=== PATIENT | male | born 1995 ===

== ENCOUNTER → 2017-01-15 | Outpatient (CLI) | payer BC ==
--- NOTE | 2017-01-15 11:46 | DIAGNOSTIC IMAGING REPORT ---
AP STANDING VIEW OF BOTH KNEES; 3 VIEWS RIGHT KNEE CLINICAL HISTORY: Right knee pain. FINDINGS: An AP standing view of both knees with lateral, tunnel, and sunrise views of the right knee are obtained. No prior studies are available for comparison at the time of dictation. The skeletal structures are well mineralized. No fracture is seen. The joint spaces of the knee are preserved. A tiny superior patellar enthesophyte is noted. No osteochondral defect is seen on the tunnel image. A small joint effusion is suspected. The overlying soft tissues are within normal limits. Survey images of the left knee on the frontal view show evidence of previous ACL repair. IMPRESSION: 1. Suspect a tiny joint effusion. No acute bony abnormality is seen in the right knee. 2. Postoperative change from previous ACL repair is noted on survey imaging of the left knee. Electronically signed by: Saqib Lynn M.D. 01/15/2017 11:45 AM Dictated Date/Time: 01/15/2017 11:44 AM
== END | disposition home or self-care (01) ==
LOC: C.RDSM 14:31
PROVIDERS: ATTEND Physician Assistant
DX: M25.561 Pain in right knee (principal)

== ENCOUNTER → 2017-01-30 | Day surgery (SDC) | payer BC ==
[2017-01-18 14:56] VITALS: Ht 175.3 cm; Wt 79.5 kg
[~2017-01-30] VITALS: Ht 175.3 cm; Wt 79.5 kg
[~2017-01-30] MED LIST: ASPI325T39 PO; ATROPINE SULFATE 0.1 MG/ML 5ML SYR IV PRN; BUPIVACAINE/EPINEPHRINE 0.25% 1:200,000 30 ML VIAL ONE; CEFAZOLIN 2000MG IV PUSH 10 ML IV SCH; CEFTRIAXONE SOD 1 GM VIAL IV ONE; CEPH500C2 PO; DEXAMETHASONE SOD INJ 4 MG/ML VIAL ONE; EpHEDrine SULFATE INJ 50 MG/ML AMP IV PRN; EpINEphrine HCL INJ 1 MG/ML 5ML SYRINGE ONE; FENTANYL CITRATE INJ 50 MCG/1 ML 2 ML VIAL IV PRN; FENTANYL CITRATE INJ 50 MCG/1 ML 2 ML VIAL ONE; FLUMAZENIL 0.1 MG/1 ML 10 ML VIAL IV PRN; HYDROmorphone INJ 0.5 MG/0.5 ML SYR ONE; HYDROmorphone INJ 2 MG/ML SYR/VIAL IV PRN; KETAMINE HCL INJ 50 MG/ML 10 ML VIAL ONE; LABETALOL HCL IV 5 MG/ML 20ML IV PRN; LACTATED RINGER'S 1000ML 1,000 ML IV SCH; LIDOCAINE HCL 2% 2 ML VIAL (20MG/ML) ONE; MEPERIDINE HCL 25 MG/ML CARP IV PRN; MIDAZOLAM HCL 1 MG/ML 2ML VIAL ONE; NALOXONE HCL 0.4 MG/1 ML VIAL/CARP IV PRN; NURSING VERBAL MED ORDER ONE; ONDANSETRON INJ 2 MG/ML 2 ML VIAL IV PRN; ONDANSETRON INJ 2 MG/ML 2 ML VIAL ONE; OXYC-57 PO; OXYCODONE/ACETAMINOPHEN 5-325 TAB ONE; OXYCODONE/ACETAMINOPHEN 5-325 TAB PO PRN; PHENYLEPHRINE 100MCG/ML 5ML SYR IV PRN; PROPOFOL IV EMULSION 10 MG/ML 20 ML VIAL IV ONE; SODIUM CHLORIDE 0.9% 1000ML 1,000 ML IV SCH
--- NOTE | 2017-01-30 09:06 | History & Physical Bridge Note ---
H&P Re-Evaluation Bridge Note: I have examined the patient, reviewed the History & Physical and in the interval since the performance of the History & Physical I have noted the following changes of clinical significance:consent reviewed. No changes noted
--- NOTE | 2017-01-30 09:07 | Discharge Instructions ---
Discharge Instructions Date of Service Jan 30, 2017. Visit Reason for Visit: Right Knee Acl Tear Discharge Discharge Diagnosis / Problem: same Discharge Goals Goal(s): Decrease discomfort, Improve function Medications Stopped Medications Name(s): na Restart Stopped Medication(s): use scripts as directed Activity Recommendations Activity Limitations: as noted below Lifting Limitations: until after follow-up appointment Exercise/Sports Limitations: until after follow-up appointment May Resume Sexual Activity: when tolerated Shower/Bathe: keep incision dry Driving or Machine Use: Weightbearing Status: Right weightbearing (as tolerated) Anesthesia . Post Anesthesia Instructions: If you have had General Anesthesia or IV Sedation: * Do not drive today. * Resume driving when surgeon permits. * Do not make important decisions or sign legal documents today. * Call surgeon for: 1. Temperature elevations greater than 101 degrees F. 2. Uncontrollable pain. 3. Excessive bleeding. 4. Persistent nausea and vomiting. 5. Medication intolerance (nausea, vomiting or rash). * For nausea and vomiting use only clear liquids such as: tea, soda, bouillon until nausea subsides, then gradually increase diet as tolerated. * If you have any concerns or questions, call your surgeon's office. If physician is unavailable and it is an emergency, call 911 or go to the nearest emergency room. . Instructions / Follow-Up Instructions / Follow-Up The following instructions are a useful guide to questions you may have after your Anterior Cruciate Ligament Reconstruction surgery. If you have any questions contact the office at . ACTIVITY RECOMMENDATIONS: * Heavy manual labor is not permitted until 4-6 months after surgery. * Sports are not permitted until 6-9 months after surgery. * Return to activity is individualized. * DRIVING: Driving is not permitted until 3-4 weeks after surgery at a minimum. Please ask your doctor when it is safe to resume driving. If you have an automatic vehicle and your left leg has been operated on, then you may begin driving as soon as you are comfortable and can drive safely. * BATHING: You may shower or sponge-bathe immediately after surgery. The dressing will need to be covered with a plastic bag or plastic wrap until the dressing is changed on the fourth or fifth day after surgery. Once the dressing has been changed on the fourth or fifth day after surgery, you may shower and get the incision wet. * Wash with regular soap and water. * Do not bathe (submerge the incision), soak, swim or use a hot tub until the incision is completely healed over with normal skin and the doctor has given the OK to proceed. * There is no need to apply any ointments, powders or salves to your incision. * Do not apply alcohol or hydrogen peroxide directly to the incision. Diluted peroxide (50:50 mixture with sterile saline) may be used to clean dried blood from around the incision area. WORK/SCHOOL: * You may return to sedentary work or school when you are feeling comfortable. This is usually 3-7 days after surgery. * Expect increased discomfort with increased activity. Continue to elevate and ice the leg as much as possible. DIET: * Resume previous diet. MEDICATIONS: * You will have a prescription for pain medication and an anti-inflammatory medication after surgery. Use the pain pills for severe pain and the anti-inflammatory for less severe pain. * Once the pain pills have run out, try to use the anti-inflammatory. If this is not effective then contact the office for assistance. * The pain medication may cause nausea, constipation and sleepiness. You should see how they affect you before driving or similar activity. * The anti-inflammatory may cause stomach upset and bleeding. If this occurs, let your doctor know immediately . * Some patients may need blood clot prevention. This can be done with either a pill or a simple shot. Your doctor will advise you on when to begin these medications and how to take them. * Do not take aspirin or other anti-inflammatory products (i.e. Advil or Aleve ) if taking blood thinner medication. * Take a stool softener like Colace or a stimulant like Senokot to prevent constipation. SPECIAL CARE INSTRUCTIONS: The following instructions are a useful guide to questions you may have after your surgery. If you have any questions contact the office at . ICE: * You have the option of an ice cooler, gel packs or ice bags. * If you have an ice cooler, refer to the instructions for that device. * If you do not have an ice cooler, then you will need to use ice bags or gel packs. * Do not apply ice directly to the skin. * Use a thin dressing or stockinet between the skin and ice bag. * Apply ice for 20-30 minutes and repeat every 2-4 hours. This is especially important for the first 7-10 days after surgery. * Once the pain improves, use ice as needed. * The ice cooler can be used continuously. ELEVATION: * Keep your leg elevated at or above the level of your heart as much as possible. * Expect some increased discomfort and swelling if you are standing for any length of time. * When lying down, avoid placing anything under your knee. Rather, prop your leg up by placing several pillows under your heel or calf. DRESSING: * Your dressing will be changed at your first therapy appointment approximately 4-5 days after surgery. * Band-Aids, tape strips or gauze may be applied. You may then change your dressing daily. * Always wash your hands prior to touching the incision area. * Reapply dressing followed by the Lan wrap or Tubi-log hooker stockinet, ice cooling pad and then the brace. * Once the stitches are removed, you may leave the wound open to air or cover with an Lan Bandage or Tubi-log hooker stockinet. * If you have been given a white elastic stocking (SAMANTHA hose), wear as much as possible for the first 1-3 weeks depending on swelling. * Expect some bloody drainage for the first few days after surgery. * Leave the tape strips in place for 5-7 days. * Band-Aids and gauze may be changed daily. CRUTCHES: * You will need to use crutches after surgery. * Until your first doctor's appointment, you must use your crutches at all times when walking and should put no more than 50% of your normal weight on the surgical leg. * After your first doctor's appointment, you may gradually progress to full weight bearing and discontinue crutches as tolerated under the guidance of your therapist. * If you have had a microfracture procedure done, you may be advised to be non- weight bearing for up to 6 weeks. BRACE: * After surgery, you will be placed into a range of motion brace locked with your leg straight. This brace is to be worn at all times when walking (even with the crutches) and sleeping until your first doctors appointment. * The brace may be removed for therapy. * After your first therapy appointment, your therapist will open the brace to allow bending of the knee once your muscles are working better. * Until your first doctor's appointment, you should sleep with your brace locked with your knee fully straight. * If you have chosen to use a functional ACL brace then this brace will be supplied about 2-3 months after your surgery. During that time, you will attend therapy 2- 3 times per week. You will also need to do daily exercises for range of motion and strength as instructed. PROBLEMS/QUESTIONS: * If you have any problems such as severe pain, numbness, tingling or high fevers or if you have any questions, please contact the office at [phone]. * It is not uncommon to have some numbness and tingling after the surgery especially if you have had a nerve block done. This should gradually improve over the first 1- 2 days. If this persists longer or worsens then contact the office. FOLLOW UP VISIT: * If not already scheduled, please call the office at to schedule follow-up appointments for approximately 10 days and one month after surgery followed by monthly appointments thereafter. Diet Recommendations Recommended Home Diet: resume previous diet Procedures Procedures Performed: see op note Pending Studies Studies pending at discharge: no Medical Emergencies . Who to Call and When: Medical Emergencies: If at any time you feel your situation is an emergency, please call 911 immediately. . Non-Emergent Contact Non-Emergency issues call your: Specialist Call Non-Emergent contact if: wound has increased drainage, wound has increased redness, wound has increased pain . . "Provider Documentation" section prepared by Ld Rankin. .
--- NOTE | 2017-01-30 09:17 | History & Physical Bridge Note ---
H&P Re-Evaluation Bridge Note: I have examined the patient, reviewed the History & Physical and in the interval since the performance of the History & Physical I have noted the following changes of clinical significance: ACL reconstruction r knee with patellar tendon autograft.consent reviewed.No changes noted
--- NOTE | 2017-01-30 11:15 | [facility] Post Operative Brief Note ---
Immediate Operative Summary Operative Date Jan 30, 2017. Pre-Operative Diagnosis Right Knee ACL Tear/meniscus tears Post-Operative Diagnosis Right Knee ACL Tear, Medial and Lateral Meniscus Tears Procedure(s) Performed Right Knee Arthroscopic Anterior Cruciate Ligament Reconstruction Using Patellar Tendon Autograft, Medial and Lateral Meniscus Repair, Exam Under Anesthesia Surgeon Dr. Rankin Transmitter Engineer Surgeon(s) Connie Claire PA-C Estimated Blood Loss 50 mL Findings see op note Fluids (cc crystalloids) 1400cc Specimens None Drains none Anesthesia LMA/block Complication(s) None Disposition Recovery Room / PACU
--- NOTE | 2017-01-30 11:19 | [facility] Operative Report ---
Operative Report Operative Date Jan 30, 2017. Pre-Operative Diagnosis Right Knee ACL Tear/meniscus tears Post-Operative Diagnosis Right Knee ACL Tear, Medial and Lateral Meniscus Tears Procedure(s) Performed Right Knee Arthroscopic Anterior Cruciate Ligament Reconstruction Using Patellar Tendon Autograft, Medial and Lateral Meniscus Repair, Exam Under Anesthesia Surgeon Dr. Rankin Offender Employment Specialist Surgeon(s) Connie Claire PA-C Estimated Blood Loss 50 mL Findings na Fluids (cc crystalloids) 1400cc Specimens None Complication(s) None Disposition Recovery Room / PACU I attest to the content of the Intraoperative Record and any orders documented therein. Any exceptions are noted below.
--- NOTE | 2017-01-30 11:54 | OPERATIVE REPORT ---
DATE OF OPERATION: 01/30/2017 SURGEON: Ld Rankin MD. INSURANCE UNDERWRITER: [place]. No resident or fellow available. PREOPERATIVE DIAGNOSIS: Anterior cruciate ligament tear, chronic right knee with possible meniscus tears. POSTOPERATIVE DIAGNOSES: 1. Anterior cruciate ligament tear. 2. Medial repairable meniscus tear. 3. Collateral repairable meniscus tear. 4. Complete anterior cruciate ligament tear. PERIOPERATIVE SITUATION: Medically cleared male with intractable instability to his knee, has giving way, has pain. Physical exam was consistent with ACL tear. He had medial and lateral joint line tenderness. He had an x-ray which revealed no fracture. It was elected not to get an MRI scan. DESCRIPTION OF PROCEDURE: The patient appropriately identified, site verified, consent verified, 2 grams of Ancef confirmed as being given. The knee was examined revealing a grossly positive Kim, pivot shift, and anterior drawer test. There was a catching in the knee joint as well. The knee was then prepped and draped in usual routine fashion. Tourniquet inflated to 275 mmHg after exsanguination of limb with a rubber Esmarch bandage. An anterior approach to the extensor mechanism was made AND the central 1/3 patellar tendon harvested with bone blocks being 20 x 10 x 5 off the patella and 30 x 10 x 5 off the tibia. They were tagged with #2 Ethibond on the tibia and an Arthrex TightRope on the patella. It was then placed in a sterile specimen container. Through the incision site, the inframedial and infralateral portals made. Inspection of the joint revealed relatively healthy articular surfaces of all 3 compartments. There was a small increase in size of the impressio terminalis but no loose fragments. The medial meniscus had a red on white tear which was rasped and then repaired with 2 sutures which improved the stability immensely. The ACL stump was debrided. A notchplasty was performed. Lateral meniscus had a red on white tear which was grasped and repaired with 3 sutures. An excellent repair was obtained. Both meniscal repairs were good. Following complete debridement of all the bone dust from the notchplasty, the tibial guide was then seated. A guide pin passed and using the parallel drill guide, a guide pin placed in a slightly better position which was excellent. An 11 mm tunnel was then made, the bone dust removed. The transtibial guide was then elected to be used as it was able to be placed in the center of the footprint of the remaining ACL. This was then drilled with a guide pin and a 10 mm socket made. Excellent position was obtained. All bone debris was removed. Using the TightRope, the graft was then shuttled into position on the femur and then with the knee at 10 degrees of flexion tension on the tibia and secured with a 9 x 20 mm fully threaded screw on the tibia with excellent purchase. Kim was completely eliminated. The pivot shift was not tested due to the meniscus repairs. The wound was then irrigated. The 0 Vicryl was used to close the fascial layer immediately, two 0 Vicryls for the peritenon. Bone trimming was used to graft the patellar harvest site. The wound was irrigated and then closed with #2 plain and running subcuticular 2-0 Prolene. Appropriate dressing applied and the patient transferred to recovery room in satisfactory condition having tolerated the procedure well. ESTIMATED BLOOD LOSS: 50 mL CRYSTALLOID: 1400 mL. DVT prophylaxis with aspirin. I attest to the content of the Intraoperative Record and any orders documented therein. Any exception s are noted below.
--- NOTE | 2017-01-30 12:14 | Anesthesia Progress Nt - [facility] ---
Anesthesia Post Op Note Date & Time Jan 30, 2017 at 12:14 Vital Signs Pain Intensity: 3 Vital Signs Past 12 Hours Date Time Temp Pulse Resp B/P (MAP) Pulse Ox O2 Delivery O2 Flow Rate FiO2 01/30/17 12:12 37.3 59 16 135/92 95 Room Air 01/30/17 11:55 59 16 93 01/30/17 11:55 59 16 01/30/17 11:51 141/73 01/30/17 11:50 84 17 94 01/30/17 11:50 83 17 01/30/17 11:46 149/103 01/30/17 11:45 80 17 98 01/30/17 11:45 76 17 01/30/17 11:41 162/104 01/30/17 11:40 63 18 100 01/30/17 11:40 64 18 01/30/17 11:36 151/104 01/30/17 11:35 80 13 100 01/30/17 11:35 76 13 01/30/17 11:34 77 16 01/30/17 11:34 76 16 99 01/30/17 11:32 151/98 01/30/17 11:31 152/103 01/30/17 11:29 79 17 100 01/30/17 11:29 80 17 01/30/17 11:26 149/105 01/30/17 11:24 93 16 96 01/30/17 11:24 92 16 01/30/17 11:20 149/113 01/30/17 11:20 154/97 01/30/17 11:19 36.5 84 12 154/97 98 Diffusion Mask 6 01/30/17 09:23 0 01/30/17 09:22 137/75 01/30/17 09:18 52 01/30/17 09:18 51 17 100 01/30/17 09:13 65 0 97 01/30/17 09:13 65 01/30/17 09:08 79 0 98 01/30/17 09:08 72 01/30/17 09:03 57 0 98 01/30/17 09:03 58 01/30/17 08:23 36.8 63 16 161/85 (110) 97 Room Air Notes Mental Status: alert / awake / arousable, participated in evaluation Pt Amnestic to Procedure: Yes Nausea / Vomiting: adequately controlled Pain: adequately controlled Airway Patency, RR, SpO2: stable & adequate BP & HR: stable & adequate Hydration State: stable & adequate Anesthetic Complications: no major complications apparent
[2017-01-30 12:30] VITALS: TEMP 37
[2017-01-30 13:18] VITALS: BP 132/80; PULSE 66; O2SAT 97
== END | disposition home or self-care (01) ==
LOC: X.SURG 08:14
PROVIDERS: ATTEND Physical Medicine & Rehabilitation Sports Medicine
DX: S83.511A Sprain of anterior cruciate ligament of right knee, initial encounter (principal); S83.241A Other tear of medial meniscus, current injury, right knee, initial encounter; X50.9XXA Other and unspecified overexertion or strenuous movements or postures, initial encounter; Y93.67 Activity, basketball; Y92.310 Basketball court as the place of occurrence of the external cause; Y99.8 Other external cause status

== ENCOUNTER → 2017-03-19 | Outpatient (CLI) | payer BC ==
[~2017-03-19] MED LIST changes: -ATROPINE SULFATE 0.1 MG/ML 5ML SYR IV PRN; -BUPIVACAINE/EPINEPHRINE 0.25% 1:200,000 30 ML VIAL ONE; -CEFAZOLIN 2000MG IV PUSH 10 ML IV SCH; -CEFTRIAXONE SOD 1 GM VIAL IV ONE; -DEXAMETHASONE SOD INJ 4 MG/ML VIAL ONE; -EpHEDrine SULFATE INJ 50 MG/ML AMP IV PRN; -EpINEphrine HCL INJ 1 MG/ML 5ML SYRINGE ONE; -FENTANYL CITRATE INJ 50 MCG/1 ML 2 ML VIAL IV PRN; -FENTANYL CITRATE INJ 50 MCG/1 ML 2 ML VIAL ONE; -FLUMAZENIL 0.1 MG/1 ML 10 ML VIAL IV PRN; -HYDROmorphone INJ 0.5 MG/0.5 ML SYR ONE; -HYDROmorphone INJ 2 MG/ML SYR/VIAL IV PRN; -KETAMINE HCL INJ 50 MG/ML 10 ML VIAL ONE; -LABETALOL HCL IV 5 MG/ML 20ML IV PRN; -LACTATED RINGER'S 1000ML 1,000 ML IV SCH; -LIDOCAINE HCL 2% 2 ML VIAL (20MG/ML) ONE; -MEPERIDINE HCL 25 MG/ML CARP IV PRN; -MIDAZOLAM HCL 1 MG/ML 2ML VIAL ONE; -NALOXONE HCL 0.4 MG/1 ML VIAL/CARP IV PRN; -NURSING VERBAL MED ORDER ONE; -ONDANSETRON INJ 2 MG/ML 2 ML VIAL IV PRN; -ONDANSETRON INJ 2 MG/ML 2 ML VIAL ONE; -OXYCODONE/ACETAMINOPHEN 5-325 TAB ONE; -OXYCODONE/ACETAMINOPHEN 5-325 TAB PO PRN; -PHENYLEPHRINE 100MCG/ML 5ML SYR IV PRN; -PROPOFOL IV EMULSION 10 MG/ML 20 ML VIAL IV ONE; -SODIUM CHLORIDE 0.9% 1000ML 1,000 ML IV SCH
== END | disposition home or self-care (01) ==
LOC: C.RDSM 14:29
PROVIDERS: ATTEND Physical Medicine & Rehabilitation Sports Medicine
DX: S83.511A Sprain of anterior cruciate ligament of right knee, initial encounter (principal); X58.XXXA Exposure to other specified factors, initial encounter